=== PATIENT | female | born 1965 | race Hispanic/Latino ===

== ENCOUNTER 2024-09-01 13:36 | Emergency (ER) | payer BC ==
[~2024-09-01] VITALS: Ht 152.4 cm; Wt 68.0 kg
[2024-09-01 13:40] VITALS: BP 164/88; PULSE 67; RESP 18; TEMP 98.3
[2024-09-01] MEDS ORDERED: acetaMINOPHEN 500 MG TABLET PO ONE (14:00)
== END 2024-09-01 14:56 | disposition left against medical advice (07) ==
LOC: EDH 13:36
DX: M79.674 Pain in right toe(s) (principal); I10 Essential (primary) hypertension; W22.09XA Striking against other stationary object, initial encounter; Y93.89 Activity, other specified; Y92.89 Other specified places as the place of occurrence of the external cause; Y99.8 Other external cause status
CPT/HCPCS: 99281